=== PATIENT | female | born 1965 | race Caucasian/White ===

== ENCOUNTER 2024-06-28 12:47 | Day surgery (SDC) | payer OTHER ==
[2024-06-28] MEDS ORDERED: Depo-Medrol 40 MG/ML IM ONE (12:48)
[2024-06-28] MEDS ORDERED: Xylocaine-Mpf 2% 5 Ml Vial IJ ONE (12:48)
[2024-06-28] MEDS ORDERED: DIPRIVAN 200 MG/20 ML IV ONE (13:52)
--- NOTE | 2024-06-28 14:59 | XRAY ---
Indication: Bilateral L4-S1 MBB. Intraoperative fluoroscopy provided for 9 seconds. Single digital spot image submitted for interpretation demonstrates posterior needle tips projecting over the expected left and right L4-S1 nerve roots. Correlate with intraoperative findings/report.
--- NOTE | 2024-06-28 16:44 | XRAY ---
9 seconds of fluoroscopy was used in surgery for a bilateral L4-S1 MBB.
== END 2024-06-28 14:15 | disposition home or self-care (01) ==
LOC: SDC-PAIN 12:47
PROVIDERS: ATTEND Psychiatry & Neurology Pain Medicine
DX: M47.816 Spondylosis without myelopathy or radiculopathy, lumbar region (principal)
CPT/HCPCS: 64493; 64494; 72020; 77002; J2704

== ENCOUNTER 2024-08-08 11:13 | Day surgery (SDC) | payer OTHER ==
[2024-08-08] MEDS ORDERED: BUPIVACAINE 0.5% VIAL IJ ONE (11:14)
[2024-08-08] MEDS ORDERED: DIPRIVAN 200 MG/20 ML IV ONE ×2 (12:16→12:26)
--- NOTE | 2024-08-08 13:58 | XRAY ---
Indication: Bilateral L4-S1 MBB. Intraoperative fluoroscopy provided for 8 seconds. Single digital spot image submitted for interpretation demonstrates posterior needle tips projecting over expected left and right L4-S1 nerve roots. Correlate with intraoperative findings/report.
--- NOTE | 2024-08-08 14:02 | XRAY ---
8 seconds of fluoroscopy was used in surgery for a bilateral L4-S1 MBB.
== END 2024-08-08 12:51 | disposition home or self-care (01) ==
LOC: SDC-PAIN 11:13
PROVIDERS: ATTEND Psychiatry & Neurology Pain Medicine
DX: M47.816 Spondylosis without myelopathy or radiculopathy, lumbar region (principal)
CPT/HCPCS: 64493; 64494; 72020; 77002; J2704

== ENCOUNTER 2024-09-26 10:27 | Day surgery (SDC) | payer OTHER ==
[2024-09-26] MEDS ORDERED: LIDOCAINE HCL 1% AMPUL 5 ML IJ ONE (10:28)
[2024-09-26] MEDS ORDERED: BUPIVACAINE 0.5% VIAL IJ ONE (10:28)
[2024-09-26] MEDS ORDERED: Depo-Medrol 40 MG/ML IM ONE (10:28)
[2024-09-26] MEDS ORDERED: propofoL IV ONE (12:45)
--- NOTE | 2024-09-26 14:34 | XRAY ---
Indication: Left L4-S1 RFA Intraoperative fluoroscopy was provided for 13 seconds. 3 digital spot images submitted for interpretation demonstrates posterior needle tips projecting over expected left L4-S1 nerve roots. Correlate with intraoperative findings/report.
--- NOTE | 2024-09-26 14:38 | XRAY ---
13 seconds of fluoroscopy was used in surgery for a left L4-S1 RFA.
== END 2024-09-26 13:18 | disposition home or self-care (01) ==
LOC: SDC-PAIN 10:27
PROVIDERS: ATTEND Psychiatry & Neurology Pain Medicine
DX: M47.817 Spondylosis without myelopathy or radiculopathy, lumbosacral region (principal)
CPT/HCPCS: 64635; 64636; 72100; 77002; J2704

== ENCOUNTER 2024-10-03 10:45 | Day surgery (SDC) | payer OTHER ==
[2024-10-03] MEDS ORDERED: Depo-Medrol 40 MG/ML IM ONE (10:46)
[2024-10-03] MEDS ORDERED: LIDOCAINE HCL 1% AMPUL 5 ML IJ ONE (10:46)
[2024-10-03] MEDS ORDERED: BUPIVACAINE 0.5% VIAL IJ ONE (10:46)
[2024-10-03] MEDS ORDERED: propofoL IV ONE (12:22)
--- NOTE | 2024-10-03 13:10 | XRAY ---
25 seconds of fluoroscopy was used in surgery for a right L4-S1 RFA.
--- NOTE | 2024-10-03 13:19 | XRAY ---
Indication: Right L4-S1 RFA. Intraoperative fluoroscopy provided for 25 seconds. 5 digital spot images submitted for interpretation demonstrates posterior needle tips projecting over expected right L4-S1 nerve roots. Correlate with intraoperative findings/report.
== END 2024-10-03 12:55 | disposition home or self-care (01) ==
LOC: SDC-PAIN 10:45
PROVIDERS: ATTEND Psychiatry & Neurology Pain Medicine
DX: M47.816 Spondylosis without myelopathy or radiculopathy, lumbar region (principal)
CPT/HCPCS: 72100; 77002; J2704